=== PATIENT | male | born 1970 | race Caucasian/White ===

== ENCOUNTER 2025-04-22 21:02 | Emergency (ER) | payer BC, SELFPAY ==
[2025-04-22 21:05] VITALS: BP 114/81
[2025-04-22 21:57] LABS: % Basophils 0.5 % (0-2); % Immature Granulocytes 0.2 % (0-0.5); % Lymphocytes 33.7 % (20.5-51.1); % Monocytes 9.9 % (1.7-9.3); % Neutrophils 53.7 % (42.2-75.2); Absolute Eosinophils 0.1 10^3/uL (0-0.7); Absolute Monocytes 0.6 10^3/uL (0.1-0.6); Absolute Neutrophils 3.2 10^3/uL (1.4-6.5); Hematocrit 40.1 % (39.0-52.0); Hemoglobin 13.6 g/dL (13.0-18.0); Mean Corp Hgb Conc. 33.9 g/dL (33.0-37.0); Mean Corpuscular Hgb 28.7 pg (27.0-31.0); Mean Corpuscular Volume 84.6 fL (80.0-94.0); Mean Platelet Volume 9.7 fL (7.4-10.4); Nucleated Red Blood Cells % 0 % (-); Platelet Count 240 10^3/uL (130-400); Red Blood Cell Count 4.74 10^6/uL (4.70-6.10); Red Cell Dist. Width 13.4 % (11.5-14.5)
[2025-04-22 22:20] LABS: ALT (SGPT) 52 U/L (0-50); AST (SGOT) 40 U/L (17-59); Albumin 5.1 g/dl (3.5-5.0); Alkaline Phosphatase 68 U/L (38-126); Blood Urea Nitrogen 20 mg/dl (9-20); Calcium 9.3 mg/dl (8.4-10.2); Carbon Dioxide 26 mmol/L (22-30); Chloride 106 mmol/L (98-107); Glucose 134 mg/dl (70-99); Lipase 225 U/L (23-300); Potassium 4.6 mmol/L (3.5-5.1); Sodium 142 mmol/L (135-145); Total Bilirubin 1.6 mg/dl (0.2-1.3); Total Protein 8.5 g/dl (6.3-8.2); eGFR > 60.00
[2025-04-22 22:21] LABS: Alcohol None Detected
[2025-04-22 23:32] VITALS: BP 143/89
[2025-04-23] VITALS: BP 146/82
[2025-04-23 00:24] LABS: Troponin I < 0.012 ng/ml
--- NOTE | 2025-04-23 01:51 | ED.GENMED ---
History of Present Illness
General
Chief Complaint: Abdominal Pain
Source: patient
Time Seen by Provider: 04/22/25 22:07
History of Present Illness
History of Present Illness:
This a 55-year-old male who presents after he was at home when he suddenly started have pain in his mid abdomen. The patient states that he had just eaten and went upstairs and started have pain in his abdomen. The patient reports a history of
IBS. He was just at his GI doctor who said everything was good. Patient states that he then got sweaty. He called for family who came in and found him pale, sweaty and weak. Patient states symptoms last about 15 minutes. Family's concern for
seem like he is pointing at his chest but the patient states it was in his abdomen. Also reports low back pain. All symptoms have since resolved. Symptoms resolved after about 15 minutes. No vomiting. No melena. No hematochezia. Spouse states
that he looks much better. Daughter states he looks much better. Has a history of hypertension hyperlipidemia
Past History
Past History
ED Past Medical History: HTN, Hypercholesterolemia and Other (Irritable bowel syndrome)
Social History
Tobacco: Non-smoker
Personal:
Living: with family
Employment: Employed
Phy Exam
Physical Exam
Physical Exam:
CONSTITUTIONAL Patient alert and oriented to person, place and time. Well-appearing. Vital signs reviewed.
HEAD atraumatic, normocephalic.
EYES eyelids normal to inspection, Extraocular muscles intact, Conjunctiva normal, Sclera normal.
NECK normal range of motion, Trachea midline, no jugular venous distention.
RESPIRATORY CHEST No respiratory distress noted, Chest expansion equal, Bilateral breath sounds clear.
CARDIOVASCULAR regular rate and rhythm, Heart sounds normal.
ABDOMEN abdomen nontender, Bowel sounds normal. No distention. no palpable pulsatile masses
BACK normal inspection, no obvious deformities
UPPER EXTREMITY range of motion normal, Motor strength normal, no cyanosis, no edema.
LOWER EXTREMITY range of motion normal, Motor strength normal, no cyanosis, no edema.
NEURO Speech normal, No focal motor deficits, Yayo coma scale 15, Memory normal, Cranial Nerves intact to screening exam.
SKIN skin warm, dry, and normal in color.
Course
Orders/Labs/Results
Orders:
Orders
04/22/25 21:14
Electrocardiogram (*1) Urgent
Reason for Study: Abdominal Pain
EKG- Treatment ONCE
04/22/25 21:16
CT Head W/o Iv Contrast Urgent
Comment:
Reason For Exam: dizziness
04/22/25 21:48
Alcohol Urgent
Complete Blood Count/With Diff Urgent
Comprehensive Metabolic Panel Urgent
Lipase Urgent
04/22/25 23:47
Troponin I Urgent
04/23/25 00:02
CT Abd/pelvis W Iv Cont Urgent
Comment:
Reason For Exam: mid abd pain, radiating to back. r/o AAA
Abnormal Lab Results
04/22/25
21:48
Monocytes % 9.9 H %
(1.7-9.3)
Glucose 134 H mg/dl
(70-99)
Total Bilirubin 1.6 H mg/dl
(0.2-1.3)
ALT 52 H U/L
(0-50)
Total Protein 8.5 H g/dl
(6.3-8.2)
Albumin 5.1 H g/dl
(3.5-5.0)
04/22/25 21:48
04/22/25 21:48
Vital Signs
Initial and Last Documented VS:
Initial Vital Signs
Temp Pulse Resp BP Pulse Ox
98.5 F 85 18 114/81 96
04/22/25 21:05 04/22/25 21:05 04/22/25 21:05 04/22/25 21:05 04/22/25 21:05
Last Documented Vital Signs
Temp Pulse Resp BP Pulse Ox
98.5 F 85 18 143/89 97
04/22/25 21:05 04/22/25 21:05 04/22/25 21:05 04/22/25 23:32 04/22/25 23:32
MDM/Problems Addressed
Differential Diagnosis Includes:
Syncope, near syncope, palpitations, intra-abdominal infection, arrhythmia
MDM/Problems Addressed:
Abdominal pain, near syncope, vasovagal event
*Pulse Oximetry
Patient hypoxic: no
*EKG
Interpreted by ED Provider?: Yes
Interpretation: normal
Rate: normal
Rhythm: sinus
[place]: normal axis
Interval: normal interval
QRS Pattern: normal QRS
Ischemia: no ischemia
*[employer] Interpretation
Rate: normal
Interpretation: normal
Rhythm: sinus
*Critical Care Note
Total Time (30-74mins, 75-104mins- exclusive of procedures): Not Applicable
Data Reviewed
Source: patient and family
Patient Management
Escalation/DeEscalation of care consider admission/obs:
My independent EKG interpretation is:
- Rhythm: Sinus rhythm.
- Heart Rate: Normal.
- MS Interval: Normal duration.
- QRS Duration: Normal.
- QT Interval: Normal.
- [place]: Normal.
- Abnormalities: None observed, no ST segment changes or T wave inversions.
04/22/25 - 23:04
The patient experienced acute abdominal pain described as feeling like a punch in the gut, accompanied by transient light sweating and pallor, reported by his family. He did not experience syncope or chest pain, despite family observing him
gesturing towards his chest. The pain was localized to the middle abdomen with minor low-back discomfort, resembling previous IBS episodes. Symptoms were brief, lasting 10-15 minutes, and resolved spontaneously. Patient continues to tolerate regular
workouts without cardiovascular symptoms. Upon examination, findings were normal: cardiovascular and respiratory systems were unremarkable, abdomen nontender, and no edema in lower extremities. No new treatment modifications discussed; patient
remains under routine surveillance with recent GI consultation.04/22/25 - 23:05
The patient has a history of hypertension, hypercholesterolemia, and idiopathic ventricular support (IVS). No history of heart problems, stroke, or seizure, with no known allergies.
Update Note
Update Note:
Normal sinus rhythm on telemetry. Suspect vasovagal event. Troponin negative. Okay for discharge. Is noted to have a good amount of stool in his colon on CT. Question whether this was constipation related leading to vasovagal event. Okay for
outpatient
ED Attending Note
-
Portions of this chart may have been created with voice recognition software.� Occasional wrong word or��sound alike� substitutions may have occurred due to the inherent limitations of voice recognition software.
Discharge Plan
Departure
Patient Disposition: Home (Routine Discharge)
Date of Disposition: 04/23/25
Time of Disposition: 02:13
Patient with high blood pressure during this ER visit?: Yes
Discharge Problem:
Vasovagal event, Abdominal pain, Constipation
Instructions: Constipation, Adult (DC), Abdominal Pain, BLOOD PRESSURE
Referrals:
Wale Denton MD [Family Provider, Family Practice]
Activity Restrictions/Additional Instructions:
Please consider MiraLAX twice a day for the next 4 to 5 days. Drink plenty of fluids. Please see your doctor in the next 1 week for follow-up and reevaluation. Return immediate for chest pain, shortness of breath, palpitations, weakness of any
kind or any other concerns
Interventions
Interventions:
*Risk Screen - Suicide Last Done: 04/22/25 21:05
*General Assessment Last Done: 04/22/25 21:05
*Neglect/Abuse Screening Last Done: 04/22/25 21:05
*ED COVID-19 Vaccine History Last Done: 04/22/25 21:05
QT-Upqwjm-Bhvqmptqaw Assessment Last Done: 04/22/25 23:00
ED- Cardiac Assessment Last Done: 04/22/25 23:00
ED- Neurological Assessment Last Done: 04/22/25 23:00
Discharge Date and Time
Print Language: SCOTTISH
[2025-04-23 02:21] VITALS: BP 122/74
== END 2025-04-23 02:30 | disposition home or self-care (01) ==
LOC: EMR 21:02
PROVIDERS: Emergency Medicine; EMERGENCY PHYSICIAN Emergency Medicine; FAMILY PHYSICIAN Family Medicine
DX: R55 Syncope and collapse (principal); R10.2 Pelvic and perineal pain; K59.00 Constipation, unspecified; E78.00 Pure hypercholesterolemia, unspecified; I10 Essential (primary) hypertension
CPT/HCPCS: 99284; 70450; 74177; 80053; 82077; 83690; 84484; 85025; 93005; Q9967